=== PATIENT | female | born 1950 | race Caucasian/White ===

== ENCOUNTER 2016-09-15 12:54 | Outpatient (RCR) | payer BC ==
[~2016-09-15 12:54] MED LIST: ACTOS15 MG PO; CALC-80 PO; HYDR-3583 PO; JUICE PLUS PO; LIRA0.6P SQ; LYSI1000 PO; MTX2.5T PO; MULT-608 PO; NF-ESOM40C PO; PROBIOTIC1 EACH PO; ROSU10TA12 PO; TELM80TA3 PO; TOLTA4 PO
== END 2016-12-14 | disposition home or self-care (01) ==
LOC: ONC 12:54
PROVIDERS: ATTEND Internal Medicine Hematology & Oncology
DX: Z08 Encounter for follow-up examination after completed treatment for malignant neoplasm (principal); Z85.3 Personal history of malignant neoplasm of breast; M81.0 Age-related osteoporosis without current pathological fracture; Z80.3 Family history of malignant neoplasm of breast; Z90.13 Acquired absence of bilateral breasts and nipples
CPT/HCPCS: 99213

== ENCOUNTER 2017-03-09 13:00 | Outpatient (RCR) | payer BC ==
[2017-05-17] MEDS ORDERED: METH2.5T PO (18:38)
[2017-05-17] MEDS ORDERED: CHOL2000 PO (18:38)
[2017-05-17] MEDS ORDERED: DICL50TA4 PO (18:38)
[2017-05-17] MEDS ORDERED: CALC600T12 PO (18:38)
[2017-05-17] MEDS ORDERED: OXYB10TA PO (18:38)
[2017-05-17] MEDS ORDERED: LORA-714 PO (18:38)
[2017-05-17] MEDS ORDERED: ATOR40TA70 PO (18:38)
[2017-05-17] MEDS ORDERED: PIOG15TA22 PO (18:38)
[2017-05-17] MEDS ORDERED: NF-MAG64T PO (18:38)
[2017-05-17] MEDS ORDERED: ALBU18HF2 INH (18:38)
[2017-05-17] MEDS ORDERED: FOLI1TAB24 PO (18:38)
[2017-05-17] MEDS ORDERED: ESOM20CA PO (18:38)
[2017-05-17] MEDS ORDERED: LIRA0.6P3 SC (18:38)
[2017-05-17] MEDS ORDERED: PHEN-827 PO (18:38)
[2017-05-17] MEDS ORDERED: LOSA100T28 PO (18:38)
[2017-05-17] MEDS ORDERED: BUDE180A INH (18:38)
[2017-05-18] MEDS ORDERED: LORA10TA7 PO (11:22)
[2017-05-18] MEDS ORDERED: FEXO180T84 PO (11:22)
[2017-05-18] MEDS ORDERED: LOSA1TAB70 PO (11:22)
[2017-05-21] MEDS ORDERED: PRD20T PO (08:16)
[2017-05-21] MEDS ORDERED: VALP250C3 PO (08:16)
[2017-05-21] MEDS ORDERED: INDO25CA PO (08:16)
[2017-05-21] MEDS ORDERED: HYDR4TAB49 PO ×2 (08:22→08:54)
== END 2017-06-07 | disposition home or self-care (01) ==
LOC: ONC 13:00
PROVIDERS: ATTEND Internal Medicine Hematology & Oncology
DX: Z08 Encounter for follow-up examination after completed treatment for malignant neoplasm (principal); Z85.3 Personal history of malignant neoplasm of breast; M81.0 Age-related osteoporosis without current pathological fracture; Z80.3 Family history of malignant neoplasm of breast; Z90.13 Acquired absence of bilateral breasts and nipples
CPT/HCPCS: 99213

== ENCOUNTER 2017-09-23 09:03 | Outpatient (RCR) | payer BC ==
[~2017-09-23 09:03] MED LIST changes: +ALBU18HF2 INH; +ATOR40TA70 PO; +BUDE180A INH; +CALC600T12 PO; +CHOL2000 PO; +DICL50TA4 PO; +ESOM20CA PO; +FEXO180T84 PO; +FOLI1TAB24 PO; +HYDR4TAB49 PO; +INDO25CA PO; +LIRA0.6P3 SC; +LORA-714 PO; +LORA10TA7 PO; +LOSA100T28 PO; +LOSA1TAB23 PO; +METH2.5T PO; +NF-MAG64T PO; +OXYB10TA PO; +PHEN-827 PO; +PIOG15TA22 PO; +PRD20T PO; +VALP250C3 PO
== END 2017-12-22 | disposition home or self-care (01) ==
LOC: ONC 09:03
PROVIDERS: ATTEND Internal Medicine Hematology & Oncology
DX: Z08 Encounter for follow-up examination after completed treatment for malignant neoplasm (principal); Z85.3 Personal history of malignant neoplasm of breast; M85.89 Other specified disorders of bone density and structure, multiple sites; I10 Essential (primary) hypertension; H53.2 Diplopia; Z80.3 Family history of malignant neoplasm of breast; Z90.13 Acquired absence of bilateral breasts and nipples; Z92.3 Personal history of irradiation
CPT/HCPCS: 99213

== ENCOUNTER 2018-03-24 09:04 | Outpatient (RCR) | payer BC ==
[~2018-03-24 09:04] MED LIST changes: -INDO25CA PO; +INDO25CA15 PO; -METH2.5T PO; -PIOG15TA22 PO; +PIOG15TA67 PO
== END 2018-06-22 | disposition home or self-care (01) ==
LOC: ONC 09:04
PROVIDERS: ATTEND Internal Medicine Hematology & Oncology
DX: Z08 Encounter for follow-up examination after completed treatment for malignant neoplasm (principal); Z85.3 Personal history of malignant neoplasm of breast; M85.89 Other specified disorders of bone density and structure, multiple sites; I10 Essential (primary) hypertension; Z90.13 Acquired absence of bilateral breasts and nipples; Z80.3 Family history of malignant neoplasm of breast; Z92.3 Personal history of irradiation
CPT/HCPCS: 99213

== ENCOUNTER 2018-10-04 10:10 | Outpatient (RCR) | payer BC ==
[~2018-10-04 10:10] MED LIST changes: -LOSA100T28 PO; +LOSA100T57 PO
[2018-12-16] MEDS ORDERED: ESOM20CA58 PO (15:17)
[2018-12-16] MEDS ORDERED: NFBIOT1000 PO (15:17)
[2018-12-16] MEDS ORDERED: MV-M1TAB57 PO (15:17)
[2018-12-16] MEDS ORDERED: L.AC1CAP6 PO (15:17)
[2018-12-16] MEDS ORDERED: DICL50TA4 PO (15:17)
[2018-12-16] MEDS ORDERED: LYSI500T PO (15:17)
[2018-12-16] MEDS ORDERED: METH2.5T PO (15:17)
[2018-12-17] MEDS ORDERED: CEFD300C3 PO (09:28)
== END 2019-01-02 | disposition home or self-care (01) ==
LOC: ONC 10:10
PROVIDERS: ATTEND Internal Medicine Hematology & Oncology
DX: Z08 Encounter for follow-up examination after completed treatment for malignant neoplasm (principal); Z85.3 Personal history of malignant neoplasm of breast; M85.89 Other specified disorders of bone density and structure, multiple sites; I10 Essential (primary) hypertension; Z90.13 Acquired absence of bilateral breasts and nipples; Z80.3 Family history of malignant neoplasm of breast; Z92.3 Personal history of irradiation
CPT/HCPCS: 99213

== ENCOUNTER → 2018-12-14 | Outpatient (CLI) | payer BC ==
[~2018-12-14] MED LIST changes: +ESOM20CA58 PO; +L.AC1CAP6 PO; -LOSA100T57 PO; +LOSA100T8 PO; +LYSI500T PO; +METH2.5T PO; +MV-M1TAB57 PO; +NFBIOT1000 PO
--- NOTE | 2018-12-14 15:38 | Diagnostic Imaging Report ---
EXAMINATION: PA and lateral chest at 12:14 p.m. INDICATION: Malaise. FINDINGS: The heart size is within normal limits and stable when compared to 05/17/2017. The lungs are generally clear. There is no evidence for failure, pneumonia, or for a pleural effusion to suggest an acute abnormality. However in the interval since the previous exam, a small 7 mm nodular density has developed in the left lung base near the left hemidiaphragm. This finding is only seen on the PA view. This density may represent a benign process such as a granuloma. It would be less likely that this finding is neoplastic in nature. Even so, the patient does have a diagnosis of breast cancer and consequently possibility that this is neoplastic should still be considered. I would recommend that CT of the chest be performed for further study. As noted on the prior exam, there are surgical clips overlying the right infrahilar region. The mediastinum is not widened. The osseous structures are intact. IMPRESSION: 1. There is no evidence for an acute cardiopulmonary abnormality. 2. The nodular density overlying the left lung base is of uncertain etiology. Considerations and recommendations as above. Dictated by: Dictated on workstation # [id number]
== END ==
LOC: RAD 11:36
PROVIDERS: ATTEND Internal Medicine
DX: C50.919 Malignant neoplasm of unspecified site of unspecified female breast (principal); J98.4 Other disorders of lung; Z98.890 Other specified postprocedural states
CPT/HCPCS: 71046

== ENCOUNTER → 2018-12-15 | Outpatient (CLI) | payer BC ==
[~2018-12-15] MED LIST changes: +CATHETER FLUSH 10 ML SYR IV PRN; +CEFD300C3 PO; +IOHEXOL 350 MG/ML 100 ML (OMNIPAQUE 350) VIAL IV ONE; +NS 100 ML (IVPB) BAG IV ONE; +RECEIVED CONTRAST (Hold Metformin) IV SCH
--- NOTE | 2018-12-15 17:40 | Diagnostic Imaging Report ---
PROCEDURE: CT sinuses without contrast TECHNIQUE: Multiple contiguous axial images were obtained through the sinuses without the use of intravenous contrast. Coronal and sagittal reformations were then performed. INDICATION: Sinusitis and fever. COMPARISON: CT head of 05/17/2017. FINDINGS: NASAL CAVITY: There is no abnormal soft tissue thickening or osseous erosions within the nasal cavity. PARANASAL SINUSES: There is moderate circumferential mucosal thickening throughout the left maxillary sinus with an associated air-fluid level present. Right maxillary sinus has trace mucosal thickening measuring up to 3 mm. The anterior ethmoid air cells are near completely opacified on both sides. Right frontal sinus is completely opacified. Left frontal sinus is well-aerated. Bilateral sphenoid sinuses are clear. SINUS DRAINAGE PATHWAYS: The left ostiomeatal unit is completely opacified and obstructed by mucosal thickening. Right ostiomeatal unit remains patent. The left frontal recess is opacified. Right frontal recess remains patent. Bilateral posterior sphenoethmoidal recesses are patent. OTHER: Orbits are normal in appearance. No space-occupying mass or hydrocephalus within the visualized brain. IMPRESSION: 1. Multifocal sinusitis with an air-fluid level in the left maxillary sinus that can be seen with acute sinusitis. 2. Multiple of the sinus drainage pathways are obstructed by mucosal thickening. Dictated by: Dictated on workstation # [id number]
== END ==
LOC: RAD 16:20
PROVIDERS: ATTEND Nurse Practitioner Family
DX: J45.909 Unspecified asthma, uncomplicated (principal); J32.0 Chronic maxillary sinusitis
CPT/HCPCS: 70486

== ENCOUNTER 2018-12-16 14:30 | Inpatient (IN) | payer BC | END 2018-12-17 17:05 | disposition home or self-care (01) | LOC: 4TH 14:30 ==

== ENCOUNTER → 2018-12-21 | Outpatient (CLI) | payer BC ==
[~2018-12-21] MED LIST changes: -CATHETER FLUSH 10 ML SYR IV PRN; -IOHEXOL 350 MG/ML 100 ML (OMNIPAQUE 350) VIAL IV ONE; +LOSA100T57 PO; -LOSA100T8 PO; -NS 100 ML (IVPB) BAG IV ONE; -RECEIVED CONTRAST (Hold Metformin) IV SCH
--- NOTE | 2018-12-21 14:26 | Diagnostic Imaging Report ---
INDICATION: Mediastinal lymphadenopathy. Patient has prior history of breast carcinoma. TECHNIQUE: Serum blood glucose level at the time of injection was 106 mg/dL. Patient was administered 12.9 mCi F-18 FDG intravenously in the left hand and PET imaging from the top of the skull to the mid thighs was performed. In addition, noncontrast CT was performed for attenuation correction and anatomic correlation. COMPARISON: Correlation is made with recent CT chest from 12/15/2018 as well as prior PET study from 12/25/2011. FINDINGS: There is symmetric activity within the brain. Soft tissues of the neck are unremarkable. There is some mild increased activity identified in the right hilum corresponding to recently noted prominent lymph node on CT study. SUV max approximately 4.2. Remainder of the mediastinum and left hilum are unremarkable. Pulmonary parenchyma is unremarkable. Imaging through the abdomen and pelvis does show normal physiologic activity within the GI and tracts. No abnormal hypermetabolism is seen. IMPRESSION: Unremarkable PET/CT study apart from mild increased metabolism in the right hilum corresponding to a prominent lymph node at this location. This is indeterminate between reactive versus neoplastic but close followup would be recommend with repeat CT chest with contrast in 2-3 months. Dictated by: Dictated on workstation # [id number]
== END ==
LOC: RAD 11:01
PROVIDERS: ATTEND Internal Medicine Critical Care Medicine
DX: N17.9 Acute kidney failure, unspecified (principal); J32.9 Chronic sinusitis, unspecified; J30.2 Other seasonal allergic rhinitis; R59.0 Localized enlarged lymph nodes; Z85.3 Personal history of malignant neoplasm of breast

== ENCOUNTER → 2019-02-11 | Outpatient (CLI) | payer BC ==
--- NOTE | 2019-02-11 19:27 | Diagnostic Imaging Report ---
INDICATION: Bilateral breast carcinoma with bilateral mastectomies with bilateral breast reconstruction. Patient does have a lump in the inferior and slightly outer right breast. EXAMINATION: Bilateral 2D and 3D diagnostic mammography was performed with CAD. The current study was also evaluated with a Computer Aided Detection (CAD) system. FINDINGS: Bilateral breast reconstructions are noted. There are surgical clips in both breasts. There are benign calcifications in both breasts. No discrete mass or suspicious calcifications are identified. Axillae are unremarkable. IMPRESSION: Postop changes of bilateral breast reconstructions. No suspicious mass or malignant appearing microcalcifications are seen. Even so, sonographic interrogation of the area of palpable abnormality in the right breast is recommended and will be performed today. ACR BI-RADS Category 0: Incomplete. (Needs additional imaging evaluation). Result letter will be mailed to the patient. Note: At least 10% of breast cancer is not imaged by mammography. Dictated by: Dictated on workstation # [id number]
--- NOTE | 2019-02-11 19:31 | Diagnostic Imaging Report ---
INDICATION: Palpable lump, right breast. COMPARISON: Correlation with diagnostic mammogram from earlier the same day. EXAMINATION: Sonographic interrogation of the area of palpable abnormality in the right breast was performed. FINDINGS: The palpable area corresponds to the 7 o'clock location, approximately 6 cm from the nipple. There are calcified masses at this location demonstrating some posterior acoustic shadowing. Largest is approximately 6 mm x 4 mm x 8 mm. Adjacent to this is a second calcification, measuring 3 mm x 2 mm x 3 mm. This corresponds to numerous calcifications noted on mammography. No other suspicious abnormality is seen. IMPRESSION: Calcifications at the area of palpable abnormality in the right breast 7 o'clock location. This corresponds to calcifications noted mammographically. These most likely represent dystrophic calcifications from surgery as well as calcifications from fat necrosis. No concerning finding is identified. ACR BI-RADS Category 2: Benign findings. Result letter will be mailed to the patient. Note: At least 10% of breast cancer is not imaged by mammography. Dictated by: Dictated on workstation # [id number]
== END ==
LOC: RAD 12:35
PROVIDERS: ATTEND Nurse Practitioner Adult Health
DX: C50.912 Malignant neoplasm of unspecified site of left female breast (principal); C50.911 Malignant neoplasm of unspecified site of right female breast; Z90.13 Acquired absence of bilateral breasts and nipples; Z98.890 Other specified postprocedural states
CPT/HCPCS: 77066

== ENCOUNTER → 2019-02-17 | Outpatient (CLI) | payer BC ==
[~2019-02-17] MED LIST changes: +HOLD METFORMIN - RECEIVED CONTRAST 20 ML VIAL IV SCH; +IOHEXOL 350 MG/ML 100 ML (OMNIPAQUE 350) VIAL IV ONE
[2019-02-17 08:46] LABS: BUN/CREATININE RATIO 27; CREATININE SERUM 0.79 MG/DL (0.60-1.30); GFR ESTIMATED > 60
--- NOTE | 2019-02-17 10:20 | Diagnostic Imaging Report ---
PROCEDURE: CT chest with contrast only. TECHNIQUE: Multiple contiguous axial images were obtained through the chest after administration of intravenous contrast. Auto Exposure Controls were utilized during the CT exam to meet ALARA standards for radiation dose reduction. INDICATION: Followup mediastinal and right hilar lymph nodes. COMPARISON: Correlation is made with prior CT of the chest from 12/15/2018. FINDINGS: No axillary lymphadenopathy is seen. There are surgical clips in the right axilla. A right paratracheal lymph node measures approximately 60 mm x 8 mm compared with 19 mm x 14 mm when measured by same technique on prior. The soft tissue in the right hilum is now barely visible and has significantly decreased in size. Left hilum is unremarkable. No new adenopathy is seen. No pericardial or pleural fluid is detected. Pulmonary parenchyma is unremarkable. No nodule, mass or infiltrate is seen. Upper abdomen is unremarkable. IMPRESSION: 1. Overall improvement in mediastinal and right hilar lymphadenopathy when compared with prior study from 12/15/2018. These are likely reactive. No new abnormality is detected. Dictated by: Dictated on workstation # [id number]
== END ==
LOC: RAD 08:08
PROVIDERS: ATTEND Nurse Practitioner Family
DX: J32.9 Chronic sinusitis, unspecified (principal); J30.2 Other seasonal allergic rhinitis; R59.0 Localized enlarged lymph nodes
CPT/HCPCS: 36415; 71260; 82565; 84520

== ENCOUNTER 2019-04-04 08:28 | Outpatient (RCR) | payer BC ==
[~2019-04-04 08:28] MED LIST changes: -RT-ALBUTEROL SULF 2.5 MG/3 ML PRE-MIX VIAL INH ONE; -RT-ALBUTEROL SULF 2.5 MG/3 ML PRE-MIX VIAL ONE
== END 2019-04-05 | disposition home or self-care (01) ==
LOC: ONC 08:28
PROVIDERS: ATTEND Internal Medicine Hematology & Oncology
DX: Z08 Encounter for follow-up examination after completed treatment for malignant neoplasm (principal); Z85.3 Personal history of malignant neoplasm of breast; R59.0 Localized enlarged lymph nodes; M85.89 Other specified disorders of bone density and structure, multiple sites; I10 Essential (primary) hypertension; Z90.13 Acquired absence of bilateral breasts and nipples; Z80.3 Family history of malignant neoplasm of breast; Z92.3 Personal history of irradiation
CPT/HCPCS: 99213

== ENCOUNTER → 2019-04-04 | Outpatient (CLI) | payer BC ==
[~2019-04-04] MED LIST changes: -HOLD METFORMIN - RECEIVED CONTRAST 20 ML VIAL IV SCH; -IOHEXOL 350 MG/ML 100 ML (OMNIPAQUE 350) VIAL IV ONE; +RT-ALBUTEROL SULF 2.5 MG/3 ML PRE-MIX VIAL INH ONE; +RT-ALBUTEROL SULF 2.5 MG/3 ML PRE-MIX VIAL ONE
== END ==
LOC: RT 08:33
PROVIDERS: ATTEND Internal Medicine Critical Care Medicine
DX: J45.909 Unspecified asthma, uncomplicated (principal); R05 Cough; R53.83 Other fatigue; G47.33 Obstructive sleep apnea (adult) (pediatric)
CPT/HCPCS: 94060; 94726; 94729

== ENCOUNTER → 2019-10-04 | Outpatient (CLI) | payer BC | LOC: EDSTATUS 04-06 08:57 → ONC 08:58 | PROVIDERS: ATTEND Internal Medicine Hematology & Oncology | DX: Z08 Encounter for follow-up examination after completed treatment for malignant neoplasm (principal); Z85.3 Personal history of malignant neoplasm of breast; M85.89 Other specified disorders of bone density and structure, multiple sites; I10 Essential (primary) hypertension; Z90.13 Acquired absence of bilateral breasts and nipples; Z80.3 Family history of malignant neoplasm of breast; Z92.3 Personal history of irradiation | CPT/HCPCS: 99213 ==

== ENCOUNTER 2019-10-10 13:10 | Outpatient (CLI) | payer BC ==
[~2019-10-10] VITALS: Ht 167.7 cm; Wt 84.5 kg
[2019-10-10] MEDS ORDERED: MONT10TA24 PO (13:27)
[2019-10-10] MEDS ORDERED: LEVO5TAB12 PO (13:27)
[2019-10-10] MEDS ORDERED: DIET75TA31 PO (13:27)
[2019-10-10] MEDS ORDERED: LOSA1TAB20 PO (13:27)
[2019-10-10] MEDS ORDERED: FLUT200B IH (13:27)
== END 2019-10-10 13:28 | disposition home or self-care (01) ==
LOC: PREOP 13:10
PROVIDERS: ATTEND Internal Medicine
DX: Z01.818 Encounter for other preprocedural examination (principal)

== ENCOUNTER → 2020-01-30 | Outpatient (CLI) | payer BC ==
[~2020-01-30] MED LIST changes: +DIET75TA31 PO; +FLUT200B IH; -INDO25CA15 PO; +INDO25CA99 PO; +LEVO5TAB12 PO; +LOSA1TAB20 PO; -LYSI500T PO; +LYSI500T10 PO; +MONT10TA26 PO; -OXYB10TA PO; +OXYB10TA29 PO
== END ==
LOC: RAD 08:25
PROVIDERS: ATTEND Internal Medicine
DX: R51 Headache (principal); R63.4 Abnormal weight loss

== ENCOUNTER → 2020-01-30 | Outpatient (CLI) | payer BC ==
[~2020-01-30] MED LIST changes: +CATHETER FLUSH 10 ML SYR IV PRN; +HOLD METFORMIN - RECEIVED CONTRAST 20 ML VIAL IV SCH; +IOHEXOL 350 MG/ML 100 ML (OMNIPAQUE 350) VIAL IV ONE; +NS 100 ML (IVPB) BAG IV ONE
[2020-01-30 09:03] LABS: BUN/CREATININE RATIO 23; CREATININE SERUM 0.83 MG/DL (0.60-1.30); GFR ESTIMATED > 60
--- NOTE | 2020-01-30 09:43 | Diagnostic Imaging Report ---
INDICATION: Headache. TECHNIQUE: Routine non contrast-enhanced axial images were obtained from the skull base to the vertex. Auto Exposure Controls were utilized during the CT exam to meet ALARA standards for radiation dose reduction COMPARISON: 05/17/2017 FINDINGS: The ventricles and cortical sulci are age-appropriate. There is no midline shift or mass-effect. No acute intra-axial hemorrhage is seen. There are no abnormal areas of increased or decreased density to suggest acute hemorrhage or edema. No extra-axial masses or collections are present. The bony calvarium is intact. The visualized paranasal sinuses are unremarkable. The mastoid air cells are clear. IMPRESSION: 1. No acute intracranial abnormality. No CT evidence of mass, acute infarct or intracranial hemorrhage. Dictated by: Dictated on workstation # [id number]
--- NOTE | 2020-01-30 09:51 | Diagnostic Imaging Report ---
EXAMINATION: CT Chest with intravenous contrast. TECHNIQUE: Multiple contiguous axial images were obtained through the chest after the uneventful administration of intravenous contrast. All CT scans use one or more of the following dose optimizing techniques: automated exposure control, MA and/or KvP adjustment based on a patient size and exam type, or iterative reconstruction. INDICATION: ASTHMA, COUGH, FATIGUE COMPARISON: 02/17/2019 FINDINGS: There is no edema or pneumonia. No pleural effusion. No pneumothorax. There is a stable 11 mm groundglass nodule in the right lower lobe (series 3, image 100). There is a stable 3 mm right upper lobe nodule (series 3, image 45). Heart size is normal. There are severe coronary artery calcifications. No pericardial effusion. Aorta is normal in caliber. There is no axillary or supraclavicular lymphadenopathy. There is no mediastinal lymphadenopathy. Lower paratracheal lymph node measures 7 mm in short axis, previously 8 mm. A right upper paratracheal lymph node measures 8 mm in short axis, previously 8 mm. Postsurgical changes in the breasts are partially included in the [id number]. Limited views of the upper abdomen show the gallbladder to be absent and calcified granulomas in the spleen. There are no suspicious osseus lesions. IMPRESSION: 1. No enlarged mediastinal lymph nodes are seen. The short axis diameter of the mediastinal lymph nodes are all less than 10 mm and unchanged from prior exam. 2. Stable pulmonary nodules. An 11 mm groundglass nodule in the right lower lobe is recommended for follow-up in one year. Dictated by: Dictated on workstation # [id number]
== END ==
LOC: RAD 08:19
PROVIDERS: ATTEND Internal Medicine Critical Care Medicine
DX: J45.909 Unspecified asthma, uncomplicated (principal); G47.33 Obstructive sleep apnea (adult) (pediatric); R51 Headache; R91.8 Other nonspecific abnormal finding of lung field; Z98.890 Other specified postprocedural states
CPT/HCPCS: 36415; 70450; 71260; 82565; 84520

== ENCOUNTER → 2020-05-14 | Outpatient (CLI) | payer BC ==
[~2020-05-14] MED LIST changes: -CATHETER FLUSH 10 ML SYR IV PRN; -HOLD METFORMIN - RECEIVED CONTRAST 20 ML VIAL IV SCH; -IOHEXOL 350 MG/ML 100 ML (OMNIPAQUE 350) VIAL IV ONE; -NS 100 ML (IVPB) BAG IV ONE
== END ==
LOC: ONC 10:22
PROVIDERS: ATTEND Internal Medicine Hematology & Oncology
DX: C50.511 Malignant neoplasm of lower-outer quadrant of right female breast (principal); L40.9 Psoriasis, unspecified
CPT/HCPCS: 99213

== ENCOUNTER → 2020-08-28 | Outpatient (CLI) | payer BC ==
[~2020-08-28] MED LIST changes: -CALC600T12 PO; +CLC600T PO
--- NOTE | 2020-08-28 18:13 | NUR ---
Notified patient of positive COVID test. Answered questions.
== END ==
LOC: LABNPT 05:44
PROVIDERS: ATTEND Internal Medicine
DX: Z11.59 Encounter for screening for other viral diseases (principal); U07.1 COVID-19
CPT/HCPCS: 87635

== ENCOUNTER → 2021-02-01 | Outpatient (CLI) | payer MEDICARE, OTHER ==
[~2021-02-01] MED LIST changes: +CATHETER FLUSH 10 ML SYR IV PRN; -FOLI1TAB24 PO; +FOLI1TAB33 PO; +HOLD METFORMIN - RECEIVED CONTRAST 20 ML VIAL IV SCH; +IOHEXOL 350 MG/ML 100 ML (OMNIPAQUE 350) VIAL IV ONE; +LORA-53 PO; -LORA-714 PO; -MONT10TA26 PO; +MONT10TA32 PO; +NS 100 ML (IVPB) BAG IV ONE
--- NOTE | 2021-02-01 09:27 | Diagnostic Imaging Report ---
PROCEDURE: CT chest with contrast only. TECHNIQUE: Multiple contiguous axial images were obtained through the chest after administration of intravenous contrast. Auto Exposure Controls were utilized during the CT exam to meet ALARA standards for radiation dose reduction. INDICATION: Enlarged lymph nodes. COMPARISON: January 30, 2020 and February 17, 2019. FINDINGS: No pathologically enlarged lymph nodes within the chest, with lymph nodes measuring below 1 cm in short dimension. Postsurgical changes associated with the bilateral breasts with surgical clips noted within the right axilla. Scattered vascular calcifications without aneurysmal dilatation of the thoracic aorta. Significant calcifications are present within the coronary arteries. Heart is within normal limits in size. No pericardial effusion. No pleural effusion. No pneumothorax. 1.1 cm groundglass nodular densities within the medial aspect of the right lower lobe, appearing stable to minimally less prominent than the prior exams. The lungs are otherwise clear of focal pulmonary opacity. Calcified splenic granuloma. Visualized upper abdomen is otherwise unremarkable. Scattered osseous degenerative changes without acute osseous abnormality. IMPRESSION: No acute abnormality. Stable 1.1 cm groundglass density within the right lower lobe. This has not significantly changed since January 2019. Additional follow-up CT of the chest is recommended in one year. Lymph nodes appear similar to the prior examination without abnormally enlarged lymph nodes within the chest. Additional postsurgical and chronic findings as above. Dictated by: Dictated on workstation # [id number]
== END ==
LOC: RAD 07:45
PROVIDERS: ATTEND Nurse Practitioner Family
DX: R59.0 Localized enlarged lymph nodes (principal); J98.4 Other disorders of lung
CPT/HCPCS: 71260

== ENCOUNTER → 2021-05-21 | Outpatient (CLI) | payer MEDICARE, OTHER ==
[~2021-05-21] MED LIST changes: +CALC600T91 PO; -CATHETER FLUSH 10 ML SYR IV PRN; -CLC600T PO; -HOLD METFORMIN - RECEIVED CONTRAST 20 ML VIAL IV SCH; -IOHEXOL 350 MG/ML 100 ML (OMNIPAQUE 350) VIAL IV ONE; -NS 100 ML (IVPB) BAG IV ONE
== END ==
LOC: ONC 14:57
PROVIDERS: ATTEND Internal Medicine Hematology & Oncology
DX: D05.11 Intraductal carcinoma in situ of right breast (principal); D05.12 Intraductal carcinoma in situ of left breast; J45.909 Unspecified asthma, uncomplicated; I10 Essential (primary) hypertension; R91.1 Solitary pulmonary nodule; E66.01 Morbid (severe) obesity due to excess calories; Z86.19 Personal history of other infectious and parasitic diseases; Z87.2 Personal history of diseases of the skin and subcutaneous tissue
CPT/HCPCS: 99213

== ENCOUNTER 2021-09-13 06:37 | Outpatient (CLI) | payer MEDICARE, OTHER ==
[~2021-09-13] VITALS: Ht 167.7 cm; Wt 80.0 kg
[2021-09-18] MEDS ORDERED: CHOL100048 PO (09:22)
[2021-09-18] MEDS ORDERED: LOSA100T57 PO (09:22)
[2021-09-18] MEDS ORDERED: VNL37.5T PO (09:22)
== END 2021-09-18 11:57 | disposition home or self-care (01) ==
LOC: PREOP 06:37
PROVIDERS: ATTEND Obstetrics & Gynecology
DX: Z01.818 Encounter for other preprocedural examination (principal)

== ENCOUNTER 2021-09-24 06:09 | Day surgery (SDC) | payer MEDICARE, OTHER ==
[~2021-09-24] VITALS: Ht 167 cm; Wt 80.0 kg
[~2021-09-24 06:09] MED LIST changes: +CHOL100048 PO; +VNL37.5T PO
[2021-09-24 06:30] VITALS: BP 139/80
[2021-09-24] MEDS ORDERED: fentaNYL INJ 100 MCG/2 ML AMP ONE (07:07)
[2021-09-24] MEDS ORDERED: LIDOCAINE PF 2% 5 ML (XYLOCAINE) VIAL ONE (07:07)
[2021-09-24] MEDS ORDERED: proPOfol 200 MG/20 ML (DIPRIVAN) VIAL IV ONE (07:07)
[2021-09-24] MEDS ORDERED: LIDOCAINE/EPI 1%-1:100,000 (XYLOCAINE) 20ML ONE (07:21)
--- NOTE | 2021-09-24 07:43 | History & Physical-Surgical ---
HPO-Surgical History of Present Illness Chief Complaint: ADRIANO of left labia biopsy in the office showed well differentiated ADRIANO of the left labia but there was some suggestion that there may be ADRIANO II deeper in the lesion, so a wide local excision is recommended Diagnosis/Surgical Indication: LEFT LABIAL ADRIANO Procedure: WIDE LOCAL INCISION OF VULVA Date of Surgery: Sep 24, 2021 Weight (Pounds): 207 Weight (Ounces): 1.0 Height (Feet): 5 Height (Inches): 6.00 Allergies and Home Medications Allergies Coded Allergies: metronidazole (Verified Allergy, Mild, BACTERIAL INFECTION, 09/24/21) amoxicillin trihydrate (Unverified Allergy, Unknown, 05/17/17) potassium clavulanate (Unverified Allergy, Unknown, 05/17/17) Patient Home Medication List Home Medication List Reviewed: Yes Albuterol Sulfate (Ventolin Hfa) 18 Gm Hfa.aer.ad, 2 PUFF INH Q4H PRN for SHORTNESS OF BREATH, (Reported) Entered as Reported by: ESCOBAR TURPIN on 05/17/171837 Atorvastatin Calcium (Atorvastatin Calcium) 40 Mg Tablet, 40 MG PO DAILY, (Reported) Entered as Reported by: ESCOBAR TURPIN on 05/17/171837 Last Action: Last Taken Edited Biotin (Biotin) 1,000 Mcg Tablet, 1,000 MCG PO DAILY, (Reported) Entered as Reported by: ADOLFO MONK on 12/16/181516 Last Action: Last Taken Edited Cholecalciferol (Vitamin D3) (Vitamin D3) 25 Mcg Capsule, 25 MCG PO DAILY, (Reported) Entered as Reported by: HENRIQUE THEODORE on 09/18/21 0922 Last Action: Last Taken Edited Diclofenac Potassium (Diclofenac Potassium) 50 Mg Tablet, 50 MG PO TID PRN for KNEE PAIN, (Reported) Entered as Reported by: ADOLFO MONK on 12/16/181516 Diethylpropion HCl (Diethylpropion HCl ER) 75 Mg Tablet.er, 75 MG PO DAILY, (Reported) Entered as Reported by: WESLY RIVERA on 10/10/191326 Last Action: Last Taken Edited Fluticasone Furoate (Arnuity Ellipta) 200 Mcg Blst.w.dev, 1 PUFF IH DAILY, (Reported) Entered as Reported by: WESLY RIVERA on 10/10/191326 Last Action: Last Taken Edited Folic Acid (Folic Acid) 1 Mg Tablet, 1 MG PO DAILY, (Reported) Entered as Reported by: ESCOBAR TURPIN on 05/17/171837 Last Action: Last Taken Edited L.acidoph & Paracasei,B.lactis (Probiotic) 1 Each Capsule, 1 CAP PO DAILY, (Reported) Entered as Reported by: ADOLFO MONK on 12/16/181516 Last Action: Last Taken Edited Levocetirizine Dihydrochloride (Levocetirizine Dihydrochloride) 5 Mg Tablet, 5 MG PO DAILY, (Reported) Entered as Reported by: WESLY RIVERA on 10/10/191326 Last Action: Last Taken Edited Liraglutide (Victoza 3-Pedrito) 0.6 Mg/0.1 Ml Pen.injctr, 1.2 MG SC DAILY, (Reported) Entered as Reported by: ESCOBAR TURPIN on 05/17/171837 Last Action: Last Taken Edited Losartan Potassium (Losartan Potassium) 100 Mg Tablet, 100 MG PO DAILY, (R eported) Entered as Reported by: HERNIQUE THEODORE on 09/18/21 0922 Last Action: Last Taken Edited Lysine (l-Lysine) 500 Mg Tablet, 1,000 MG PO BID, (Reported) Entered as Reported by: ADOLFO MONK on 12/16/181516 Last Action: Last Taken Edited Magnesium Chloride (Slow-Mag) 64 Mg Tab, 64 MG PO DAILY, (Reported) Entered as Reported by: ESCOBAR TURPIN on 05/17/171837 Last Action: Last Taken Edited Methotrexate Sodium (Methotrexate) 2.5 Mg Tablet, 2.5 MG PO FrSa@2100, (Reported) Entered as Reported by: ADOLFO MONK on 12/16/181516 Last Action: Last Taken Edited Mv-Mn/Folic Acid/Calcium/Vit K (Women's 50 Plus Multivit Tab) 1 Each Tablet, 1 TAB PO DAILY, (Reported) Entered as Reported by: ADOLFO MONK on 12/16/181516 Last Action: Last Taken Edited Phenazopyridine HCl (Phenazopyridine HCl) 200 Mg Tablet, 200 MG PO TID PRN for URINARY PAIN, (Reported) Entered as Reported by: ESCOBAR TURPIN on 6/18/17 1838 Venlafaxine HCl (Venlafaxine HCl) 37.5 Mg Tab, 37.5 MG PO DAILY, (Reported) Entered as Reported by: HENRIQUE THEODORE on 09/18/21 09 Last Action: Last Taken Edited Discontinued Medications Calcium Carbonate (Calcium) 600 Mg Tablet, 1,200 MG PO DAILY, (Reported) Discontinued Reason: No Longer Taking Entered as Reported by: ESCOBAR TURPIN on 05/17/171837 Cholecalciferol (Vitamin D3) (Vitamin D) 2,000 Unit Capsule, 2,000 UNIT PO DAILY, (Reported) Discontinued Reason: Prescription changed Entered as Reported by: ESCOBAR TURPIN on 05/17/171837 Fexofenadine HCl (Kelly Allergy) 180 Mg Tablet, 180 MG PO Q48H, (Reported) Discontinued Reason: No Longer Taking Entered as Reported by: ADOLFO MONK on 05/18/17 112 Loratadine (Loratadine) 10 Mg Tablet, 10 MG PO Q48H, (Reported) Discontinued Reason: No Longer Taking Entered as Reported by: ADOLFO MONK on 05/18/17 1122 Losartan/Hydrochlorothiazide (Losartan-Hctz 50-12.5 mg Tab) 1 Each Tablet, 1 TAB PO BID, (Reported) Discontinued Reason: Prescription changed Entered as Reported by: WESLY RIVERA on 10/10/19 1327 Montelukast Sodium (Montelukast Sodium) 10 Mg Tablet, 10 MG PO HS, (Reported) Discontinued Reason: No Longer Taking Entered as Reported by: WESLY RIVERA on 10/10/19 1327 Pioglitazone HCl (Pioglitazone HCl) 15 Mg Tablet, 15 MG PO DAILY, (Reported) Discontinued Reason: No Longer Taking Entered as Reported by: ESCOBAR TURPIN on 05/17/171837 Past Yxcguzn-Rhedic-Bryjta Hx Patient Social History Marrital Status: Smoking Status: Never a Smoker 2nd Hand Smoke Exposure: No Recent Hopitalizations: No Immunizations Up To Date Tetanus Booster (TDap): Unknown Pediatric: Yes Date of Pneumonia Vaccine: Aug 30, 2009 Date of Influenza Vaccine: Aug 30, 2020 Seasonal Allergies Seasonal Allergies: Yes Surgeries Yes (bilateral mastectomy 2008) Breast, Gallbladder, Hysterectomy, Tonsillectomy Respiratory Yes (ADULT ONSET ASTHMA) Currently Using CPAP: No Currently Using BIPAP: No Cardiovascular Yes Hypertension Neurological Yes (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) Headaches /Migraines, Neuropathy Reproductive System Hx Reproductive Disorders: No Sexually Transmitted Disease: No HIV/AIDS: No Female Reproductive Disorders: Denies [employer] History: Hysterectomy Genitourinary Yes UTI-Chronic Gastrointestinal Yes Gastroesophageal Reflux, Gall Bladder Disease Musculoskeletal Yes (OSTEOPENIA, ARTHRITIS) Osteoporosis, Arthritis Endocrine History of Endocrine Disorders: Yes Endocrine Disorders: Diabetes, Non-Insulin dep HEENT History of HEENT Disorders: Yes (double vision for 8 months after shingles ) HEENT Disorders: Double Vision Loss of Vision: Denies Hearing Impairment: Denies Cancer Yes Breast Did You Recieve Any Treatments: Yes Type of Treatment: Chemotherapy, Radiation, Surgical Intervention Psychosocial History of Psychiatric Problem: Yes Behavioral Health Disorders: Depression Integumentary History of Skin or Integumenta: Yes Skin/Integumentary Disorders: Psoriasis Blood Transfusions History of Blood Disorders: No Family Medical History Family Hx: Cardiovascular disease 19 FATHER Cataracts 19 FATHER 19 MOTHER Diabetes mellitus 19 FATHER G8 BROTHER Glaucoma 19 FATHER Hypertension 19 MOTHER Neoplasm 19 FATHER (BONE CANCER) G8 SISTER (BREAST CANCER ()) Osteoporosis 19 MOTHER Exam Vital Signs Vital Signs 09/24/21 06:30 Temp 36.1 Pulse 82 Resp 18 B/P (MAP) 139/80 (99) Pulse Ox 98 O2 Delivery Room Air Capillary Refill : Labs Laboratory Tests Test 09/24/21 06:48 Range/Units Glucometer 105 70-110 MG/DL General Appearance: Alert Respiratory: Clear to Auscultation Cardiovascular: Regular Rate Assessment/Plan Assessment and Plan ADRIANO of left labia Plan wide local excision. Risks of surgery include bleeding, injury to surrounding tissues, scarring, possibility of further surgery, infection is less likely. Consents have been signed. No antibiotics are required. Will use prophylactic SCDs. Admission Diagnosis Admission Status: Other (Same Day Surgery) BERTA HELTON DO Sep 24, 2021 07:43
[2021-09-24] MEDS ORDERED: PROPOFOL INJECTION 50 ML IV ONE (07:59)
[2021-09-24] MEDS ORDERED: ONDANSETRON 4 MG/2 ML (SDV) Z0FRAN ONE (07:59)
[2021-09-24] MEDS ORDERED: LACTATED RINGERS 1,000 ML IV PRN (08:15)
[2021-09-24 08:20] VITALS: BP 126/71
--- NOTE | 2021-09-24 08:20 | Operative Report ---
Operative Report Date of Procedure/Surgery Sep 24, 2021 Surgeon (s) BERTA HELTON DO Section Plotter Operator (s): NA Post-Operative Diagnosis ADRIANO I of left labia minora Procedure Performed wide local excision of left labia lesion (ADRIANO I) Description of Procedure Anesthesia Type: Conscious Sedation Estimated blood loss (mL): minimal Specimen(s) collected/removed left labial biopsy/lesion Description of the Procedure With informed consent the patient was taken to the operating room where general anesthesia was found to be adequate. She was then prepped and draped in the usual sterile fashion in the dorsolithotomy position. The bladder was drained of clear yellow urine. I marked the lesion on the left labia where the previous biopsy had been taken. Pathology had been consistent with ADRIANO I with possible higher grade dysplasia noted so a wider excision was indicated. I made a 3x.5 cm elliptical incision with a scalpel excising the entire lesion. The edges were close due to the location of this lesion on the labia minora. I then closed the subcutaneous space with 3-0 Vicryl interrupted sutures and then closed the skin with 3-0 nylon interrupted sutures. 7 sutures were placed. There was minimal bleeding. The patient was now awakened and take n to recovery in stable condition. Sponge, needle and instrument counts were correct times two. Findings of the Procedure reddened area surrounding previous biopsy Allergies and Home Medications Allergies Coded Allergies: metronidazole (Verified Allergy, Mild, BACTERIAL INFECTION, 09/24/21) amoxicillin trihydrate (Unverified Allergy, Unknown, 05/17/17) potassium clavulanate (Unverified Allergy, Unknown, 05/17/17) Patient Home Medication List Home Medication List Reviewed: Yes Acetaminophen (Acetaminophen) 500 Mg Tablet, 1,000 MG PO Q8H Prescribed by: BERTA HELTON on 09/24/21 0835 Albuterol Sulfate (Ventolin Hfa) 18 Gm Hfa.aer.ad, 2 PUFF INH Q4H PRN for SHORTNESS OF BREATH, (Reported) Entered as Reported by: ESCOBAR TURPIN on 05/17/171837 Atorvastatin Calcium (Atorvastatin Calcium) 40 Mg Tablet, 40 MG PO DAILY, (Reported) Entered as Reported by: ESCOBAR TURPIN on 05/17/171837 Last Action: Last Taken Edited Benzocaine/Menthol (Dermoplast Pain Relieving [place]) 78 Gm Aerosol, 0 EA TP TID PRN for PAIN Prescribed by: BERTA HELTON on 09/24/21834 Biotin (Biotin) 1,000 Mcg Tablet, 1,000 MCG PO DAILY, (Reported) Entered as Reported by: ADOLFO MONK on 12/16/181516 Last Action: Last Taken Edited Cholecalciferol (Vitamin D3) (Vitamin D3) 25 Mcg Capsule, 25 MCG PO DAILY, (Reported) Entered as Reported by: HENRIQUE THEODORE on 09/18/21921 Last Action: Last Taken Edited Diclofenac Potassium (Diclofenac Potassium) 50 Mg Tablet, 50 MG PO TID PRN for KNEE PAIN, (Reported) Entered as Reported by: ADOLFO MONK on 12/16/181516 Diethylpropion HCl (Diethylpropion HCl ER) 75 Mg Tablet.er, 75 MG PO DAILY, (Reported) Entered as Reported by: WESLY RIVERA on 10/10/191326 Last Action: Last Taken Edited Fluticasone Furoate (Arnuity Ellipta) 200 Mcg Blst.w.dev, 1 PUFF IH DAILY, (Reported) Entered as Reported by: WESLY RIVERA on 10/10/191326 Last Action: Last Taken Edited Folic Acid (Folic Acid) 1 Mg Tablet, 1 MG PO DAILY, (Reported) Entered as Reported by: ESCOBAR TURPIN on 05/17/171837 Last Action: Last Taken Edited L.acidoph & Paracasei,B.lactis (Probiotic) 1 Each Capsule, 1 CAP PO DAILY, (Reported) Entered as Reported by: ADOLFO MONK on 12/16/181516 Last Action: Last Taken Edited Levocetirizine Dihydrochloride (Levocetirizine Dihydrochloride) 5 Mg Tablet, 5 MG PO DAILY, (Reported) Entered as Reported by: WESLY RIVERA on 10/10/191326 Last Action: Last Taken Edited Lidocaine HCl (Lidocaine HCl) 30 Ml Jel..ml., 30 ML MM 5XD Prescribed by: BERTA HELTON on 09/24/21834 Liraglutide (Victoza 3-Pedrito) 0.6 Mg/0.1 Ml Pen.injctr, 1.2 MG SC DAILY, (Reported) Entered as Reported by: ESCOBAR TURPIN on 05/17/171837 Last Action: Last Taken Edited Losartan Potassium (Losartan Potassium) 100 Mg Tablet, 100 MG PO DAILY, (Reported) Entered as Reported by: HENRIQUE THEODORE on 09/18/21921 Last Action: Last Taken Edited Lysine (l-Lysine) 500 Mg Tablet, 1,000 MG PO BID, (Reported) Entered as Reported by: ADOLFO MONK on 12/16/181516 Last Action: Last Taken Edited Magnesium Chloride (Slow-Mag) 64 Mg Tab, 64 MG PO DAILY, (Reported) Entered as Reported by: ESCOBAR TURPIN on 05/17/171837 Last Action: Last Taken Edited Methotrexate Sodium (Methotrexate) 2.5 Mg Tablet, 2.5 MG PO FrSa@2100, (Repo rted) Entered as Reported by: ADOLFO MONK on 12/16/181516 Last Action: Last Taken Edited Mv-Mn/Folic Acid/Calcium/Vit K (Women's 50 Plus Multivit Tab) 1 Each Tablet, 1 TAB PO DAILY, (Reported) Entered as Reported by: ADOLFO MONK on 12/16/181516 Last Action: Last Taken Edited Phenazopyridine HCl (Phenazopyridine HCl) 200 Mg Tablet, 200 MG PO TID PRN for URINARY PAIN, (Reported) Entered as Reported by: ESCOBAR TURPIN on 05/17/171837 Venlafaxine HCl (Venlafaxine HCl) 37.5 Mg Tab, 37.5 MG PO DAILY, (Reported) Entered as Reported by: HENRIQUE THEODORE on 09/18/21921 Last Action: Last Taken Edited BERTA HELTON DO Sep 24, 2021 08:20
[2021-09-24 08:30] VITALS: BP 128/74
[2021-09-24] MEDS ORDERED: KETOROLAC 15 MG/ML VIAL IVP ONE (08:30)
[2021-09-24] MEDS ORDERED: ESTRADIOL VAGINAL CREAM 42.5 GM (ESTRACE) VG SCH (08:30)
[2021-09-24] MEDS ORDERED: BENZOCAINE/MENTHOL (DERMOPLAST) 56 ML CAN TP PRN (08:30)
[2021-09-24] MEDS ORDERED: ONDANSETRON 4 MG/2 ML (SDV) Z0FRAN IVP PRN (08:30)
[2021-09-24] MEDS ORDERED: KETOROLAC 30 MG/ML VIAL ONE (08:32)
--- NOTE | 2021-09-24 08:32 | Discharge Inst-Women's Service ---
Discharge Inst-Women's Serv Depart Medication/Instructions Instructions Keep the biopsy site clean and dry. Do not wash the biopsy area for 12 hours. Apply estrace cream twice daily to keep it otherwise moist (not wet). Apply direct pressure on the biopsy site if bleeding occurs. May be helpful to wear spanx or tight underwear to keep pressure. Take a shower 24 hours after the biopsy. May use pericare bottle after urinating to clean, rather than wipe with tissue. Avoid hot bathtubs until healing is complete. Wash the area once or twice daily and pat it dry. Then apply the estrace cream. Avoid sexual intercourse until the area has healed completely. Dermoplast spray as needed for pain. Lidocaine gel can be used as well. Use an ice pack for at least 24 hours after surgery and then as needed. Final Diagnosis ADRIANO I of left labia (labial lesion) Problems Reviewed?: Yes Consults/Follow Up Additional Follow Up: Yes (10 days ) Activity Activity: Bedrest (for 24 hours) Driving Instructions: No Driving for 24 Hours NO SMOKING: NO SMOKING Nothing Inside Vagina: No Douching, No [place] (until healed), No Tampons Diet Discharge Diet: No Restrictions Symptoms to Report to : Swelling Increased, Bleeding Excessive, Pain Increased, Fever Over 101 Degrees F, Vaginal Bleeding Increase, Cramps in Feet or Legs, Vaginal Discharge Foul For Any Problems or Questions: Contact Your Physician Skin/Wound Care Bathing Instructions: Shower (see instructions.) BERTA HELTON DO Sep 24, 2021 08:32
[2021-09-24 08:35] VITALS: BP 138/92
[2021-09-24] MEDS ORDERED: ACET-93 PO (08:35)
[2021-09-24] MEDS ORDERED: LIDO30JE3 MM (08:35)
[2021-09-24] MEDS ORDERED: BENZ78AE5 TP (08:35)
[2021-09-24 08:45] VITALS: BP_SYST 142; BP_SYST 143; BP_DIAS 80; BP_DIAS 90
--- NOTE | 2021-09-24 08:48 | Anesthesia-General Post-Op ---
MAC Patient Condition Mental Status/LOC: Same as Preop Cardiovascular: Satisfactory Nausea/Vomiting: Absent Respiratory: Satisfactory Pain: Controlled Complications: Absent Post Op Complications Complications None Follow Up Care/Instructions Patient Instructions None needed. Anesthesiology Discharge Order Discharge Order Patient is doing well, no complaints, stable vital signs, no apparent adverse anesthesia problems. No complications reported per nursing. BENNY COEL CRNA Sep 24, 2021 08:48
[2021-09-24 09:15] VITALS: BP 129/72
== END 2021-09-24 09:35 | disposition home or self-care (01) ==
LOC: SDC 06:09
PROVIDERS: ATTEND Obstetrics & Gynecology
DX: D07.1 Carcinoma in situ of vulva (principal); I10 Essential (primary) hypertension; G62.9 Polyneuropathy, unspecified; G43.909 Migraine, unspecified, not intractable, without status migrainosus; N39.0 Urinary tract infection, site not specified; K21.9 Gastro-esophageal reflux disease without esophagitis; M19.90 Unspecified osteoarthritis, unspecified site; M81.0 Age-related osteoporosis without current pathological fracture; E11.9 Type 2 diabetes mellitus without complications; E78.5 Hyperlipidemia, unspecified; J45.909 Unspecified asthma, uncomplicated; G47.33 Obstructive sleep apnea (adult) (pediatric); F32.A Depression, unspecified; Z79.899 Other long term (current) drug therapy; Z90.710 Acquired absence of both cervix and uterus; Z90.89 Acquired absence of other organs; Z85.3 Personal history of malignant neoplasm of breast; Z83.3 Family history of diabetes mellitus; Z80.8 Family history of malignant neoplasm of other organs or systems
CPT/HCPCS: 82947; 87081; 88305

== ENCOUNTER → 2022-11-18 | Outpatient (CLI) | payer MEDICARE, OTHER ==
[~2022-11-18] MED LIST changes: +ACET-93 PO; +BENZ78AE5 TP; +LIDO30JE3 MM; +LORA-1389 PO; -LORA-53 PO; +MONT-40 PO; -MONT10TA32 PO
--- NOTE | 2022-11-18 16:21 | Diagnostic Imaging Report ---
INDICATION: Right breast lump. Patient has had prior breast surgery and reconstruction. TECHNIQUE: Sonographic interrogation of the area of lump in the right breast was performed. FINDINGS: The area of lump corresponds to the 7 o'clock location 4 cm from the nipple. There is a calcification with shadowing at this location measuring 12 mm and corresponding to the numerous calcifications noted on prior mammograms. No concerning mass is detected. IMPRESSION: Right breast calcifications at the 7 o'clock location account for the area of palpable abnormality. The patient may return to routine annual screening. ACR BI-RADS Category 2: Benign findings. Dictated by: Dictated on workstation # [id number]
== END ==
LOC: RAD 14:01
PROVIDERS: ATTEND Nurse Practitioner
DX: C50.511 Malignant neoplasm of lower-outer quadrant of right female breast (principal)

== ENCOUNTER → 2023-06-29 | Outpatient (CLI) | payer MEDICARE, OTHER ==
[~2023-06-29] VITALS: Ht 167.7 cm; Wt 80.0 kg
[~2023-06-29] MED LIST changes: +LIDOCAINE 1% INJ 10 ML VIAL INJ ONE; -LOSA100T57 PO; +LOSA100T58 PO
--- NOTE | 2023-06-29 11:57 | Diagnostic Imaging Report ---
INDICATION: Enlarged right supraclavicular lymph node. Patient presents for ultrasound-guided biopsy. Patient brought to the procedure and placed on table in the supine position. Ultrasound imaging of the right neck was performed to evaluate appropriate entry site. The right neck was then prepped and draped in usual sterile fashion. Small amount 1% lidocaine was utilized for local anesthesia. A total of 4 passes were made into the enlarged lymph node in the right supra clavicular region just lateral to the jugular vein utilizing 18-gauge Temno needle. Core biopsies were obtained. Needle was removed and hemostasis was obtained. Patient tolerated the procedure well and left the department in stable condition. IMPRESSION: Successful ultrasound guided core biopsy of the right sided supraclavicular enlarged lymph node. Pathology results are currently pending. Dictated by: Dictated on workstation # [id number]
== END ==
LOC: RAD 08:25
PROVIDERS: ATTEND Internal Medicine Hematology & Oncology
DX: R59.1 Generalized enlarged lymph nodes (principal)
CPT/HCPCS: 76942